=== PATIENT | female | born 1965 | race Two or more races ===

== ENCOUNTER 2025-06-01 03:37 | Emergency (ER) | payer MEDICAID ==
[~2025-06-01] VITALS: Ht 152.4 cm; Wt 78.0 kg
[2025-06-01 03:52] VITALS: TEMP 98.6
[2025-06-01] MEDS ORDERED: ATOR20TA PO (03:58)
[2025-06-01] MEDS ORDERED: LEVO100 PO (03:58)
[2025-06-01] MEDS ORDERED: ASPI-1444 PO (03:58)
[2025-06-01 04:00] LABS: PLATELET COUNT (AUTO) 237 K/uL (150-450); RED BLOOD CELL COUNT(AUTO) 4.87 MIL/uL (4.00-5.20); RED CELL DISTRIBUTION WIDTH 13.5 % (11.5-14.5); WHITE BLOOD COUNT (AUTO) 5.9 K/uL (4.5-11.0)
[2025-06-01 04:09] LABS: CALCIUM, TOTAL 9.3 mg/dL (8.8-10.5); CREATININE 0.77 mg/dL (0.60-1.30); GLOMERULAR FILTR. RATE CALC > 60 mL/min (>60); GLUCOSE,RANDOM 107 mg/dL (70-110); SODIUM SERUM 140 mmol/L (136-145); UREA NITROGEN, BLOOD 19 mg/dL (7-18)
[2025-06-01 04:17] LABS: TROPONIN I-HIGH SENSITIVITY 9 ng/L (<51)
[2025-06-01 05:00] VITALS: BP 141/82; PULSE 72; RESP 15; O2SAT 100
== END 2025-06-01 05:20 | disposition home or self-care (01) ==
LOC: EMS 03:37
DX: E03.9 Hypothyroidism, unspecified (principal); E78.00 Pure hypercholesterolemia, unspecified; I10 Essential (primary) hypertension; J45.909 Unspecified asthma, uncomplicated; Z98.890 Other specified postprocedural states; Z79.899 Other long term (current) drug therapy; Z79.82 Long term (current) use of aspirin
CPT/HCPCS: 71045; 80048; 83690; 83735; 84484; 85025; 93005; 99285; 36415-L1; 36415-TC